=== PATIENT | male | born 1955 | race Caucasian/White ===

== ENCOUNTER → 2017-01-25 | Outpatient (CLI) | payer BC ==
--- NOTE | 2017-01-25 11:54 | PCVCIMAG ---
APPROVED REPORT Indications Stenosis Chews tobacco Risk Factors Hypertension: Doppler Spectral Velocity Analysis PSV / EDVPSV / EDV ECA (R) 40 / 12 cm/sECA (L) 90 / 24 cm/s dICA (R) 56 / 27 cm/sdICA (L) 65 / 35 cm/s Kari (R) 50 / 27 cm/smICA (L) 63 / 34 cm/s pICA (R) 43 / 13 cm/spICA (L) 60 / 16 cm/s Bulb (R) 65 / 17 cm/sBulb (L) 46 / 17 cm/s dCCA (R) 78 / 26 cm/sdCCA (L) 68 / 27 cm/s mCCA (R) 73 / 19 cm/smCCA (L) 61 / 24 cm/s Vert (R) 40 / 17 cm/sVert (L) 23 / 9 cm/s ICA/CCA 0.72ICA/CCA 0.96 Basic Measurements Blood Pressure: Pulses: Right Left RightLeft Brachial(Sitting) 135/41xsQq760/94mmHgTemporal Real Time B-Mode Imaging Vert. (R)AntegradeVert. (L)Antegrade Findings The right carotid bulb has mild plaque. The right proximal internal carotid artery shows no significant stenosis. The right common carotid artery shows no significant stenosis. The right external carotid artery shows no significant stenosis. The left carotid bulb has minimal plaque. The left proximal internal carotid artery shows no significant stenosis. The left common carotid artery shows no significant stenosis. The left external carotid artery shows no significant stenosis. Conclusion 1. Mild plaquing involving both caroitid arteries without significant stenosis 2. Antegrade vertebral flow
--- NOTE | 2017-01-25 11:58 | PCVCIMAG ---
APPROVED REPORT Exam: Stress Echocardiogram Indication: CABG Patient Location: Echo lab Stress Nurse: Alberta Clarke RN Status: routine HR: 74 bpm Rhythm: NSR Procedure The patient underwent an Exercise Stress Test using the Darvin Protocol. Blood pressure, heart rate, and EKG were monitored. An Echocardiogram was performed by fiberglass technician in four stages in quad fashion. At peak stress, four selected images were obtained and placed side by side with resting images for comparison. Echo Enhancing Agent Comments: Ascending Aorta Measures 4.4. Stress Test Details Stress Test: Exercise stress testing was performed using a Darvin protocol. HR Resting HR: 74 bpmMax Heart Rate (APMHR): 159 bpm Max HR Achieved: 130 bpmTarget HR (85% APMHR): 135 bpm % of APMHR: 81 BP Resting BP: 110/80 mmHg Max BP: 152/88 mmHg ECG Resting ECG: Sinus Rhythm Stress ECG: Sinus Rhythm ST Change: Normal Maximum ST Deviation: 0 mm Recovery ECG: Sinus Rhythm Recovery ST Deviation: 0 mm Recovery Arrhythmia: Occasional VPC's Clinical Reason for Termination: Maximal effort Stress Symptoms: Hip pain Exercise duration: 6 min sec Highest Stage Achieved: Stage 2: 2.5 mph at 12% grade. Exercise capacity: 7.00 METs Angina Score: None Stress ECG Conclusion ECG: Non-ischemic Clinical: Non-ischemic Tuttle Treadmill Score is 6.0 which is Low risk. Pre-Stress Echo The resting Echocardiogram showed normal left ventricular contractility with an estimated Ejection Fraction of about 50-55%. Post-Stress Echo The stress Echocardiogram showed normal left ventricular contractility with an estimated Ejection Fraction of about 60-65%. Conclusion Clinical Response: Non-ischemic Exercise Capacity: Average Stress ECG Response: Non-ischemic 1. Normal stress echocardiogram with maximal exercise stress. 2. Thoracic aortic aneurysm 4.5cm, similar to prior measurements <Conclusion> 1. Normal stress echocardiogram with maximal exercise stress. 2. Thoracic aortic aneurysm 4.5cm, similar to prior measurements
== END | disposition home or self-care (01) ==
LOC: PCVCIMAG 09:44
PROVIDERS: ATTEND Internal Medicine
DX: I65.23 Occlusion and stenosis of bilateral carotid arteries (principal); I71.2 Thoracic aortic aneurysm, without rupture; E78.5 Hyperlipidemia, unspecified; I25.10 Atherosclerotic heart disease of native coronary artery without angina pectoris; I10 Essential (primary) hypertension; Z95.1 Presence of aortocoronary bypass graft
CPT/HCPCS: 80061; 93325; 93351; 93880

== ENCOUNTER → 2018-06-06 | Outpatient (CLI) | payer BC ==
--- NOTE | 2018-06-06 12:05 | PCVCIMAG ---
APPROVED REPORT Study performed: 06/06/2018 09:31:15 EXAM: Comprehensive 2D, Doppler, and color-flow Echocardiogram Patient Location: Echo lab Status: routine BSA: 2.03 HR: 72 bpmBP: 136/90 mmHg Rhythm: NSR Other Information Study Quality: Adequate Risk Factors: Cardiac Risk Factors: Hyperlipidemia Indications CAD CABG x5 (2006) 2D Dimensions IVSd: 9.28 (7-11mm)LVOT Diam: 21.00 (18-24mm) LVDd: 40.51 mm PWd: 10.92 (7-11mm)Ascending Ao: 44.48 (22-36mm) LVDs: 32.26 (25-40mm) Left Atrium: 32.32 (27-40mm) Aortic Root: 36.11 mm LV Single Plane 4CH: 55.00 % LV Single Plane 2CH: 59.63 % Biplane EF: 54.1 % Volumes Left Atrial Volume (Systole) Single Plane 4CH: 42.02 mLSingle Plane 2CH: 34.13 mL LA ESV Index: 20.00 mL/m2 Aortic Valve AoV Peak Anshul.: 1.28 m/s AO Peak Gr.: 6.53 mmHgLVOT Max P.79 mmHg LVOT Max V: 0.97 m/s DALTON Vmax: 2.55 cm2 AI Vmax: 3.39 m/s AI Maury: 1.83 m/s2 AI PHT: 567.19 ms Mitral Valve E/A Ratio: 0.8 MV Decel. Time: 225.19 ms MV E Max Anshul.: 0.57 m/s MV A Anshul.: 0.76 m/s IVRT: 76.12 ms TDI E/Lateral E': 8.14E/Medial E': 8.14 Medial E' Anshul.: 0.07 m/s Lateral E' Anshul.: 0.07 m/s Pulmonary Valve PV Peak Anshul.: 0.85 m/sPV Peak Gr.: 2.92 mmHg Pulmonary Vein P Vein S: 0.50 m/sP Vein A: 0.20 m/s P Vein D: 0.58 m/sP Vein A Dur.: 103.8 msec P Vein S/D Ratio: 0.86 Tricuspid Valve RAP Estimate: 7.00 mmHg Left Ventricle The left ventricle is normal size. There is normal LV segmental wall motion. There is normal left ventricular wall thickness. Left ventricular systolic function is normal. The left ventricular ejection fraction is within the normal range. LVEF is 55-60%. Grade I - abnormal relaxation pattern. Right Ventricle The right ventricle is normal size. The right ventricular systolic function is normal. Atria The left atrium size is normal. The right atrium size is normal. Aortic Valve The aortic valve is mildly sclerotic. Mild aortic regurgitation. There is no aortic valvular stenosis. Mitral Valve The mitral valve is normal in structure. Mild mitral regurgitation. No evidence of mitral valve stenosis. Tricuspid Valve The tricuspid valve is normal in structure. There is no tricuspid valve regurgitation noted. Pulmonic Valve The pulmonary valve is normal in structure. Trace pulmonic regurgitation. Great Vessels The aortic root is normal in size. The ascending aorta is moderately dilated (4.4cm). IVC is normal in size and collapses >50% with inspiration. Pericardium There is no pericardial effusion. <Conclusion> Left ventricular systolic function is normal. There is normal LV segmental wall motion. LVEF is 55-60%. Mild diastolic dysfunction The aortic valve is mildly sclerotic. Mild aortic regurgitation, no stenosis. The mitral valve is normal in structure. Mild mitral regurgitation. The ascending aorta is moderately dilated (4.4cm). There is no pericardial effusion.
== END | disposition home or self-care (01) ==
LOC: PCVCIMAG 09:20
PROVIDERS: ATTEND Internal Medicine
DX: I08.0 Rheumatic disorders of both mitral and aortic valves (principal); I71.2 Thoracic aortic aneurysm, without rupture; E78.5 Hyperlipidemia, unspecified; Z95.1 Presence of aortocoronary bypass graft
CPT/HCPCS: 93306